=== PATIENT | male | born 1975 | race Caucasian/White ===

== ENCOUNTER 2016-09-06 13:02 | Emergency (ER) | payer OTHER ==
[~2016-09-06] VITALS: Ht 160 cm; Wt 88.2 kg
[2016-09-06 14:21] LABS: ASPARTATE AMINO TRANSFERASE 22 U/L (15-37); BLOOD UREA NITROGEN 15 mg/dL (7-18)
[2016-09-06 14:27] LABS: IS PT STATUS REG ER OR PRE ER? YES
[2016-09-06 15:41] VITALS: BP 126/84
== END 2016-09-06 15:44 | disposition home or self-care (01) ==
LOC: ED 14:47
DX: R42 Dizziness and giddiness (principal); M25.561 Pain in right knee; J45.909 Unspecified asthma, uncomplicated
CPT/HCPCS: 36415; 71020; 80053; 83735; 84436; 84443; 84484; 85025; 93005

== ENCOUNTER 2017-09-20 20:40 | Emergency (ER) | payer OTHER ==
[~2017-09-20] VITALS: Ht 160 cm; Wt 84.0 kg
[2017-09-20 20:43] VITALS: BP 162/70
[2017-09-20] MEDS ORDERED: HYDROcodone/APAP 10/325 MG TABLET PO ONE (21:30)
[2017-09-20] MEDS ORDERED: HYDROcodone/APAP 10/325 MG TABLET ONE (21:37)
== END 2017-09-20 22:53 | disposition home or self-care (01) ==
LOC: ED 21:00
DX: S83.91XA Sprain of unspecified site of right knee, initial encounter (principal); J45.909 Unspecified asthma, uncomplicated; X58.XXXA Exposure to other specified factors, initial encounter; Y93.89 Activity, other specified; Y92.89 Other specified places as the place of occurrence of the external cause; Y99.8 Other external cause status
CPT/HCPCS: 99284

== ENCOUNTER 2018-06-08 02:12 | Emergency (ER) | payer OTHER ==
[~2018-06-08] VITALS: Ht 160 cm; Wt 86.5 kg
[2018-06-08 03:04] VITALS: BP 152/86
--- NOTE | 2018-06-08 03:05 | NUR ---
FIRST CONTACT WITH PT. PT C/O BILATERAL LOWER BACK PAIN SINCE THIS AM. PT STATES " I TWISTED MY BACK IN THE MORNING AND HAD SHARP PAIN." NO TRAUMA/BRUISE NOTED. PT'S AOX4. RESPS EVEN AND UNLABORED. BP/SPO2 MONITORS IN PLACE. CALL LIGHT WITHIN REACH. EDMD AT BEDSIDE TO ASSESS AT THIS TIME.
[2018-06-08] MEDS ORDERED: METHOCARBAMOL 750 MG TABLET ONE (03:28)
[2018-06-08] MEDS ORDERED: HYDROcodone/APAP 5/325 TABLET ONE (03:29)
[2018-06-08] MEDS ORDERED: METHOCARBAMOL 750 MG TABLET PO ONE (03:30)
[2018-06-08] MEDS ORDERED: HYDROcodone/APAP 5/325 TABLET PO ONE (03:30)
--- NOTE | 2018-06-08 03:33 | NUR ---
PT MEDICATED PER EMAR FOR PAIN. PT TOLERATED WELL. PT'S AOX4. RESPS EVEN AND UNLABORED.
--- NOTE | 2018-06-08 04:25 | NUR ---
PT GIVEN DC INSTRUCTIONS AND SCRIPTS. PT EDUCATED REGARDING DC MEDICATIONS. PT AMB TO DC WITH STEADY GAIT. NO ACUTE DISTRESS AT DC.
== END 2018-06-08 04:21 | disposition home or self-care (01) ==
LOC: ED 04:00
DX: M54.5 Low back pain (principal); J45.909 Unspecified asthma, uncomplicated
CPT/HCPCS: 99283

== ENCOUNTER 2020-12-13 07:06 | Emergency (ER) | payer OTHER ==
[~2020-12-13] VITALS: Ht 160 cm; Wt 102.0 kg
--- NOTE | 2020-12-13 07:11 | NUR ---
EKG IN TRIAGE
--- NOTE | 2020-12-13 07:20 | NUR ---
PT IN [facility] IN [facility]. STEVE JEFF, AT BS FOR PT HISTORY AND ASSESSMENT. PT HAS CALL LIGHT WITHIN REACH.
[2020-12-13] MEDS ORDERED: ALBUTEROL/IPRATROPIUM 2.5MG/0.5MG, 3 ML NPPB ONE (07:30)
[2020-12-13] MEDS ORDERED: ALBUTEROL/IPRATROPIUM 2.5MG/0.5MG, 3 ML ONE (07:33)
--- NOTE | 2020-12-13 07:36 | NUR ---
PT MEDICATED PER MAR
--- NOTE | 2020-12-13 09:04 | NUR ---
PT REC'VD DISCHARGE INSTRUCTIONS AND EDUCATION. PT HAD NO FURTHER QUESTIONS. PT AMBULATED TO DC AREA, STEADY GAIT.
[2020-12-13 09:05] VITALS: BP 147/83
== END 2020-12-13 09:07 | disposition home or self-care (01) ==
LOC: ED 08:55
DX: J45.31 Mild persistent asthma with (acute) exacerbation (principal); R06.00 Dyspnea, unspecified; R00.0 Tachycardia, unspecified
CPT/HCPCS: 71045; 93005; 94640; 99283; J7512